=== PATIENT | male | born 1995 | race Caucasian/White ===

== ENCOUNTER 2020-06-02 12:58 | Emergency (ER) | payer SELFPAY ==
[~2020-06-02] VITALS: Ht 165.1 cm; Wt 69.9 kg
[2020-06-02 13:04] VITALS: BP 148/74
[2020-06-02] MEDS ORDERED: ONDANSETRON 4 MG ODT PO ONE (13:40)
[2020-06-02] MEDS ORDERED: KETOROLAC 30 MG/ML VIAL IM ONE (13:40)
[2020-06-02 13:49] LABS: BASOPHILS % (AUTO) 0.4 % (0.0-2.0); EOSINOPHILS % (AUTO) 0.7 % (0.0-4.0); HEMATOCRIT 46.8 % (36-52); HEMOGLOBIN 15.9 g/dL (12.0-18.0); LYMPHOCYTES # (AUTO) 1.9 K/uL (2.0-11.5); MEAN CORPUSCULAR HEMOGLOBIN 30 pg (27-31); MEAN CORPUSCULAR HGB CONC 34 g/dL (33-37); MEAN CORPUSCULAR VOLUME 86.8 fL (80-94); MONOCYTES # (AUTO) 0.4 K/uL (0.8-1.0); MONOCYTES % (AUTO) 6.6 % (1.7-9.3); NEUTROPHILS # (AUTO) 4.2 K/uL (1.8-7.7); NEUTROPHILS % (AUTO) 63.3 % (42.2-75.2); PLATELET COUNT (AUTO) 208 K/uL (140-450); RED BLOOD CELL COUNT(AUTO) 5.39 MIL/uL (4.20-6.10); RED CELL DISTRIBUTION WIDTH 13.2 % (11.6-13.7); WHITE BLOOD COUNT (AUTO) 6.6 K/uL (4.8-10.8)
[2020-06-02 14:05] LABS: ALBUMIN 4.3 g/dL (3.4-5.0); ANION GAP 10.3 (8-16); CARBON DIOXIDE 28.7 mmol/L (21-32); TOTAL BILIRUBIN 0.5 mg/dL (0.0-1.0)
[2020-06-02] MEDS ORDERED: ONDA4TAB PO (14:32)
[2020-06-02] MEDS ORDERED: NAPR-54 PO (14:32)
[2020-06-02 14:57] VITALS: BP 148/74
== END 2020-06-02 14:57 | disposition home or self-care (01) ==
LOC: MED 12:58
DX: T58.91XA Toxic effect of carbon monoxide from unspecified source, accidental (unintentional), initial encounter (principal); R51.9 Headache, unspecified; Z79.899 Other long term (current) drug therapy; Y92.89 Other specified places as the place of occurrence of the external cause
CPT/HCPCS: 36600; 80053; 82803; 85025; 96372; 99283; J1885; Q0162